=== PATIENT | male | born 1935 | race Caucasian/White ===

== ENCOUNTER 2017-09-01 19:41 | Inpatient (IN) | payer OTHER ==
--- NOTE | 2017-09-01 20:43 | EDPHY ---
H & P Time Seen by Provider: 09/01/17 20:22 HPI/ROS: CHIEF COMPLAINT: Left hand cellulitis HISTORY OF PRESENT ILLNESS: 82-year-old male presents with left hand cellulitis. He sustained a dog bite 3 days ago while playing with a family dog. Today his daughter went to his home and noticed that his hand was very red and painful. She took him to [facility] where he was given a dose of IV clindamycin. The plan was to discharge him home on Augmentin, but then he developed a fever to 101. He complains of mild pain of the left hand, which does not change with left hand/wrist movement. No nausea, vomiting or weakness. Last tetanus is unknown. REVIEW OF SYSTEMS: Eyes: No visual changes ENT: No sore throat Respiratory: No cough, no shortness of breath Cardiac: No chest pain Gastrointestinal: No nausea, no vomiting, no abdominal pain Genitourinary: No hematuria, no dysuria Neurological: No headache, no weakness Psychiatric: No depression Past Medical/Surgical History: Dementia Social History: Lives in own home Smoking Status: Never smoked Physical Exam: General Appearance: Alert, pleasant Eyes: Pupils equal and round, no conjunctival pallor or injection ENT, Mouth: Mucous membranes moist Neck: Normal inspection Respiratory: Lungs are clear to auscultation Cardiovascular: Regular rate and rhythm Gastrointestinal: Abdomen is soft and nontender Neurological: A&O, nonfocal exam Skin: Warm and dry Extremities: Left upper extremity-erythema, warmth and tenderness on the dorsum of the left hand, with 2 puncture kohler present. The erythema extends up the dorsal surface of the forearm, with a red streak on the volar aspect of the forearm. Psychiatric: Mood and affect normal Constitutional: Initial Vital Signs Temperature (C) 37.3 C 09/01/17 19:46 Heart Rate 65 09/01/17 19:46 Respiratory Rate 18 09/01/17 19:46 Blood Pressure 137/77 H 09/01/17 19:46 O2 Sat (%) 93 09/01/17 19:46 O2 Delivery Mode Room Air Allergies/Adverse Reactions: No Known Allergies Allergy (Verified 09/01/17 19:45) Home Medications: Medication Instructions Recorded Donepezil HCl [Aricept] 10 mg PO HS 09/01/17 Herbals/Supplements -Info Only 1 ea PO DAILY 09/01/17 Medical Decision Making - Diagnostics Imaging Results: X-ray independently reviewed by me reveals no retained foreign body and no evidence of osteomyelitis. Imaging: I viewed and interpreted images myself ED Course/Re-evaluation: This patient presents with cellulitis of the left hand and forearm, with lymphangitis. He is nontoxic appearing and does not meet SIRS criteria. Xray reveals no evidence of osteo or FB. He has already received clindamycin 600 mg IV. He will also need coverage for pasteurella, so Zosyn IV given after blood cultures drawn. The hospitalist service was consulted for admission. Differential Diagnosis: includes though not limited to osteomyelitis, retained FB, DVT, tenosynovitis, joint infection - Data Points Laboratory Results: Laboratory Results 09/01/17 20:45 09/01/17 20:45 Microbiology Results: MICROBIOLOGY 09/01/17 20:45 Blood Blood Culture - Preliminary Medications Given: Donepezil HCl (Aricept) 10 mg PO HS ELAINE Stop: 03/01/18 20:59 Last Admin: 09/02/17 23:17 Dose: 10 mg Heparin Sodium (Porcine) (Heparin Sc Injection) 5,000 unit SC Q8 ELAINE Stop: 03/01/18 05:59 Last Admin: 09/03/17 05:26 Dose: 5,000 unit Piperacillin/Tazobactam/Dextrose (Zosyn 3.375 Gm (Premix)) 50 mls @ 100 mls/hr IV 0500,1100,1700,2300 ELAINE PRN Reason: Protocol Stop: 10/02/17 02:59 Last Admin: 09/03/17 10:11 Dose: 50 mls Discontinued Medications Diphtheria/Tetanus/Acell Pertussis (Boostrix) 0.5 ml IM .ONCE ONE Stop: 09/03/17 10:28 Last Admin: 09/03/17 12:02 Dose: 0.5 ml Piperacillin/Tazobactam/Dextrose (Zosyn 3.375 Gm (Premix)) 50 mls @ 100 mls/hr IV EDNOW ONE PRN Reason: Protocol Stop: 09/01/17 21:22 Last Admin: 09/01/17 21:16 Dose: 50 mls Piperacillin/Tazobactam/Dextrose (Zosyn 3.375 Gm (Premix)) 50 mls @ 100 mls/hr IV Q6H ELAINE PRN Reason: Protocol Stop: 10/02/17 02:59 Last Admin: 09/02/17 08:08 Dose: 50 mls Departure - Departure Disposition: [facility] Clinical Impression: Cellulitis with lymphangitis Dog bite Qualifiers: Encounter type: initial encounter Qualified Code(s): W54.0XXA - Bitten by dog, initial encounter Condition: Fair
[2017-09-01] MEDS ORDERED: PIPERACILLIN/TAZO 3.375 GM/DEX 50 ML IV ONE (20:53)
[2017-09-01 21:00] LABS: PLATELET COUNT 133 10^3/uL (150-400)
[2017-09-01] MEDS ORDERED: HYDROmorphone HCL/NS 0.5 MG/ML SYR IVP PRN (22:20)
[2017-09-01] MEDS ORDERED: ONDANSETRON 4 MG/2 ML VIAL IVP PRN (22:20)
[2017-09-01] MEDS ORDERED: ACETAMINOPHEN 325 MG TAB PO PRN (22:20)
[2017-09-01] MEDS ORDERED: HYDROCODONE/APAP 5/325 TAB PO PRN (22:20)
--- NOTE | 2017-09-01 23:47 | PDGENHP ---
History and Physical - Chief Complaint Left hand pain and swelling, dog bite - History of Present Illness Source - Patient provides majority of the history and is a fair historian. Daughter at bedside and supplements details. Case discussed with accepting hospitalist and EMR reviewed. HPI - Pleasant 82 yo M with pmx significant for mild anemia, thrombocytopenia, mild dementia who presents to the ED from [facility] after being evaluated for worsening left hand pain, swelling and redness. Patient was spending Wednesday with his family and was playing with his daughter's dog who is vaccinated. Patient did sustain 2 punctures to the dorsum of his left hand. Daughter reports patient had a little bit of bleeding at the puncture sites but otherwise did not have any other issues. She visited the patient today and noted significant swelling, redness and patient had some pain. He was evaluated at [facility] and given a dose of IV clindamycin after he developed a fever to 101F. Patient otherwise denies any chills/sweats. no nausea/vomiting. denies any other rashes or sores. Daughter reports that redness/swelling are already improving. Patient denies any numbness/tingling to his left hand. He denies any restricted ROM. 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 Right inguinal hernia repair - Family History Negative for: diabetes type II, CAD Additional family history: patient denies family members overall healthy. parents . - Social History Smoking Status: Former smoker (quit over 40 years ago) Tobacco Use: Cigarettes Alcohol Use: Other (daily [place] cocktail.) Drug Use: None Additional social history: Lives alone. Daughter supportive and lives in town. COR - FULL. Review of Systems Review of Systems: ROS: 10pt was reviewed & negative except for what was stated in HPI & below Constitutional: Reports: fever (One episode at [facility] today.). Denies: chills EENMT: Reports: no symptoms Cardiac: Reports: no symptoms Respiratory: Reports: no symptoms Gastrointestinal: Reports: no symptoms Genitourinary: Reports: no symptoms Muscolosketal: Reports: other (Right hand pain. Without any limited range of motion.) Skin: Reports: other (Erythema and swelling in the left hand as per HPI.) Neurological: Reports: no symptoms. Denies: numbness, paresthesia, weakness Physical Exam Physical Exam: Selected Entries 09/01/17 19:46 Blood Pressure Automatic Method Heart Rate 65 Respiratory 18 Rate O2 Sat (%) 93 Temperature (C) 37.3 C Blood Pressure 137/77 H Mean Arterial 97 Pressure (MAP) O2 Delivery Room Air Mode Temperature Oral Source Temp Pulse Resp BP Pulse Ox 37.2 C 70 16 130/58 H 90 L 09/01/17 22:35 09/01/17 22:35 09/01/17 22:35 09/01/17 22:35 09/01/17 22:35 Constitutional: no apparent distress, appears nourished, chronically ill appearing, No uncomfortable Eyes: anicteric sclera, EOMI, other (Bifocals. Pupils are equal and symmetric.) , No scleral injection Ears, Nose, Mouth, Throat: moist mucous membranes, no oral mucosal ulcers, No poor dentition Cardiovascular: regular rate and rhythym, no murmur, rub, or gallop, No edema Peripheral Pulses: 2+: dorsalis-pedis (R), dorsalis-pedis (L) Respiratory: no respiratory distress, no rales or rhonchi, clear to auscultation , reduced air movement (Bibasilar.), No expiratory wheeze, No respiratory distress Gastrointestinal: normoactive bowel sounds, soft, non-tender abdomen, no palpable masses, other (Soft but full abdomen), No rebound, No distension Genitourinary: no bladder tenderness, No brewer in urethra Skin: warm, normal color, no fluctuance, erythema (Left hand), induration (Left hand swelling. No fluctuance.), No rash Musculoskeletal: full muscle strength, normal joint ROM, other (Patient moves all extremities upper lower thyroid of 5 strength), No generalized weakness Neurologic: CN II-XII Intact, No weakness, No numbness, No facial droop Psychiatric: interacting appropriately, not encephalopathic, thought process linear, poor memory (Patient unable to relay some details regarding most recent events in the last few days regarding dog bite.) Lab Data & Imaging Review 09/01/17 20:45 09/01/17 20:45 WBC 8.37 10^3/uL (3.80-9.50) 09/01/17 20:45 RBC 3.66 10^6/uL (4.40-6.38) L 09/01/17 20:45 Hgb 12.5 g/dL (13.7-17.5) L 09/01/17 20:45 Hct 36.0 % (40.0-51.0) L 09/01/17 20:45 MCV 98.4 fL (81.5-99.8) 09/01/17 20:45 MCH 34.2 pg (27.9-34.1) H 09/01/17 20:45 MCHC 34.7 g/dL (32.4-36.7) 09/01/17 20:45 RDW 12.5 % (11.5-15.2) 09/01/17 20:45 Plt Count 133 10^3/uL (150-400) L 09/01/17 20:45 MPV 10.1 fL (8.7-11.7) 09/01/17 20:45 Neut % (Auto) 67.1 % (39.3-74.2) 09/01/17 20:45 Lymph % (Auto) 20.5 % (15.0-45.0) 09/01/17 20:45 [place] % (Auto) 10.8 % (4.5-13.0) 09/01/17 20:45 Eos % (Auto) 0.7 % (0.6-7.6) 09/01/17 20:45 Baso % (Auto) 0.5 % (0.3-1.7) 09/01/17 20:45 Nucleat RBC Rel Count 0.0 % (0.0-0.2) 09/01/17 20:45 Absolute Neuts (auto) 5.62 10^3/uL (1.70-6.50) 09/01/17 20:45 Absolute Lymphs (auto) 1.72 10^3/uL (1.00-3.00) 09/01/17 20:45 Absolute Monos (auto) 0.90 10^3/uL (0.30-0.80) H 09/01/17 20:45 Absolute Eos (auto) 0.06 10^3/uL (0.03-0.40) 09/01/17 20:45 Absolute Basos (auto) 0.04 10^3/uL (0.02-0.10) 09/01/17 20:45 Absolute Nucleated RBC 0.00 10^3/uL (0-0.01) 09/01/17 20:45 Immature Gran % 0.4 % (0.0-1.1) 09/01/17 20:45 Immature Gran # 0.03 10^3/uL (0.00-0.10) 09/01/17 20:45 VBG Lactic Acid 0.7 mmol/L (0.7-2.1) 09/01/17 20:45 Sodium 136 mEq/L (135-145) 09/01/17 20:45 Potassium 4.8 mEq/L (3.5-5.2) 09/01/17 20:45 Chloride 100 mEq/L (97-110) 09/01/17 20:45 Carbon Dioxide 28 mEq/l (22-31) 09/01/17 20:45 Anion Gap 8 mEq/L (8-16) 09/01/17 20:45 BUN 19 mg/dL (7-23) 09/01/17 20:45 Creatinine 0.9 mg/dL (0.7-1.3) 09/01/17 20:45 Estimated GFR > 60 09/01/17 20:45 Glucose 92 mg/dL (70-100) 09/01/17 20:45 Calcium 8.6 mg/dL (8.5-10.4) 09/01/17 20:45 Imaging Review: 3 Views Left Hand: Clinical Indications: Pain and swelling of the left hand following a dog bite 3 days ago. Findings: A fracture or other acute osseous abnormality is not identified. The bone alignment is normal. Degenerative arthritic changes are seen. Soft tissue swelling is noted. No soft tissue air is identified and no radiopaque foreign body is seen. No osseous erosions are identified Impression: Negative for acute osseous abnormality. Assessment & Plan Assessment: Cellulitis with lymphangitis (Acute) -s/p IV clinda outpatient and now s/p Zosyn for coverage of pasteurella. patient without further fevers. Patient does not meet SIRS criteria. Blood cultures x2 were ordered from the emergency department. Lactate was within normal limits. Daughter reports improvement in patient's erythema and swelling already. Will continue with IV Zosyn pending stain and clinical improvement of patient's cellulitis. Discussed with the patient and daughter need for close monitoring and reassessment in the morning before considering discharge on oral antibiotics. Dog bite (Acute) - tetanus vaccination screening and update as appropriate. chronic medical issues dementia - continue patient's donepezil anemia - compared to labs from 2016 and stable. advised patient to follow up with pcp. thrombocytopenia - also mild and compared from 2016. f/u with pcp. FEN - patient tolerating oral hydration adequately at this time is not appear dehydrated and will continue to encourage. Electrolyte monitoring replacement if needed. Diet as tolerated. PPX-SCDs. Anticoagulation if patient should stay additional day. Cor status-full Disposition-patient admitted observation status on the medical floor. Daughter reports improvement in patient's erythema. Patient maintains range of motion and does not appear to have any involvement in tendon. Patient is desirous for her discharge as soon as possible as he and his daughter are heading out of town for family members wedding this weekend.
[2017-09-02] MEDS: PIPERACILLIN/TAZO 3.375 GM/DEX 50 ML IV SCH ×5 (03:40→23:11)
[2017-09-02 05:55] LABS: PLATELET COUNT 121 10^3/uL (150-400)
[2017-09-02] MEDS: HEPARIN 5,000 UNIT/0.5 ML INJ SC SCH ×3 (06:26→23:12)
--- NOTE | 2017-09-02 11:10 | ASMTCMCOM ---
CM Note CM Note Notes: Patient admitted with a cellulitis of the L hand following a dog bite. He is showing improvement on IV antibiotics after failing a course of orals. Patient is normally independent. He lives alone but has a supportive daughter in town. They are anxious to discharge because they have travel plans this weekend. Thankfully, patient will likely not have any discharge needs. Case Management available if that changes. Date Signed: 09/02/2017 11:09 AM Electronically Signed By:Reina Otoole RN
--- NOTE | 2017-09-02 16:05 | HOSPPROG ---
Hospitalist Progress Note Assessment/Plan: 82y male with c/o redness after a dog bite. First encounter, chart reviewed. # Cellulitis with lymphangitis (Acute) - -s/p IV clinda outpatient and now s/p Zosyn for coverage of pasteurella. -patient without further fevers. -Patient does not meet SIRS criteria. -Blood cultures x2 were ordered from the emergency department. -Lactate was within normal limits. -Daughter reports improvement in patient's erythema and swelling already. -Will continue with IV Zosyn pending clinical improvement of patient's cellulitis. -Discussed with the patient and daughter need for close monitoring and reassessment in the morning before considering discharge on oral antibiotics. # Dog bite (Acute) - -tetanus vaccination screening and update as appropriate. #dementia - -continue patient's donepezil #anemia - -compared to labs from 2016 and stable. advised patient to follow up with pcp. #thrombocytopenia - -also mild and compared from 2016. f/u with pcp. #FEN - -patient tolerating oral hydration adequately at this time is not appear dehydrated and will continue to encourage. -Diet as tolerated. PPX-SCDs. Anticoagulation if patient should stay additional day. Cor status-full Disposition-patient will be changed to inpatient status as he requires further IV abx therapy. Patient maintains range of motion and does not appear to have any involvement in tendon. Patient is desirous for her discharge as soon as possible as he and his daughter are heading out of town for family members wedding this weekend. Plan to DC in am after 5:00am dose of abx. Long discussion with daughter and patient. Subjective: Feeling better. No pain. No issues. Objective: Vital Signs Temp Pulse Resp BP Pulse Ox 37.1 C 80 18 110/65 90 L 09/02/17 15:35 09/02/17 15:35 09/02/17 15:35 09/02/17 15:35 09/02/17 15:35 Laboratory Results 09/02/17 05:08 09/02/17 05:08 09/01/17 09/02/17 09/03/17 05:59 05:59 05:59 Intake Total 285 Balance 285 - Physical Exam Constitutional: no apparent distress, appears nourished, not in pain Eyes: PERRL, anicteric sclera, EOMI Ears, Nose, Mouth, Throat: moist mucous membranes, hearing normal, ears appear normal Cardiovascular: regular rate and rhythym, No JVD, No tachycardia Respiratory: no respiratory distress, no rales or rhonchi, clear to auscultation Gastrointestinal: normoactive bowel sounds, soft, non-tender abdomen, No ascites Skin: warm, no induration, erythema Musculoskeletal: full muscle strength, no muscle tenderness, normal joint ROM Neurologic: AAOx3 Psychiatric: interacting appropriately, not anxious, not encephalopathic, poor memory ICD10 Worksheet Patient Problems: Problems Problem Status Onset Osteoarthritis of knee Active Cellulitis of knee Active Cellulitis with lymphangitis Acute Dog bite Acute
--- NOTE | 2017-09-02 16:47 | PDMN ---
Medical Necessity Medical necessity: change to IP; los>2mn for cellulitis L hand w/lymphangitis r/ t dog bite; requires continued IV abx; comorbid dementia, chronic anemia and thrombocytopenia; per order and progress note 09/02/17
--- NOTE | 2017-09-02 22:50 | HOSPPROG ---
Hospitalist Progress Note Assessment/Plan: Hospitalist night float note Discussed patient with swing provider Dr. Lovelace, who evaluated the patient independently who is concerned that patient still had a significant amount of erythema and swelling in the left hand. I Went to bedside to follow up on progress of patient's left hand cellulitis. There was some hope that if patient's cellulitis continued to improve that patient might be able to leave for early discharge with oral antibiotic therapy for grandson's wedding [id number]. Erythema on his forearm has significantly improved and the patient continues to have a notable amount of erythema and swelling in his the dorsum of his hand and fingers. 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 He has remained afebrile. Discussed with patient and his daughter at bedside that I recommend continuing IV antibiotics (Zosyn) at this time until the erythema is further improved particularly over dorsum of his hand and fingers. Continue with elevation of the left upper extremity. Patient was already transition to inpatient status earlier in the day. Blood cultures are still pending. Patient has remained afebrile. RN will be updated of plan. Objective: Vital Signs Temp Pulse Resp BP Pulse Ox 37.1 C 88 16 109/62 93 09/02/17 19:38 09/02/17 19:38 09/02/17 19:38 09/02/17 19:38 09/02/17 19:38 Laboratory Results 09/02/17 05:08 09/02/17 05:08 09/01/17 09/02/17 09/03/17 05:59 05:59 05:59 Intake Total 285 500 Balance 285 500 ICD10 Worksheet Patient Problems: Problems Problem Status Onset Cellulitis with lymphangitis Acute Dog bite Acute Cellulitis of knee Active Osteoarthritis of knee Active
[2017-09-02] MEDS: DONEPEZIL HCL 5 MG TAB PO SCH (23:17)
[2017-09-03] MEDS: PIPERACILLIN/TAZO 3.375 GM/DEX 50 ML IV SCH ×4 (05:26→22:25)
[2017-09-03] MEDS: HEPARIN 5,000 UNIT/0.5 ML INJ SC SCH ×3 (05:26→21:17)
[2017-09-03] MEDS ORDERED: Herbals/Supplements -Info Only PO SCH (09:00)
[2017-09-03] MEDS ORDERED: TDAP ADULT 0.5 ML INJ (BOOSTRIX) IM ONE (10:27)
--- NOTE | 2017-09-03 10:37 | SOAPPROG ---
SOAP Progress Note Assessment/Plan: Assessment:This is an 82 yo male who was brought to the ED from Urgent Care following a dog bite to his left hand. He was given Rocephin at Urgent Care but became febrile, so they transferred him to [facility]. He was started on Zosyn for left hand cellulitis. Blood cultures have been negative thus far. Vitals stable. Clinically improving. Plan: -Cellulitis: Currently on zosyn, appears to be responding nicely. Has remained afebrile, blood cultures negative. Last tetanus was in 2010. Given that it has been more than 5 years will administer tdap today. Will keep him inpatient and on IV abx at least through tomorrow and see how his hand is improving. Will plan to d/c on Augmentin when it is time. -Dispo: Anticipate d/c home in 1-2 days, depending on safety and ability to manage new abx at home independently. Will have case management see him to help coordinate. May need home health to help until family returns home. 09/03/17 10:39 Subjective: Roque is sitting up in his chair this morning eating breakfast. Feels well and says his hand is improving- much less red than it was initially. He says he doesn't have a huge appetite, but attributes this to his inactivity while in the hospital. Objective: Vital Signs Temp Pulse Resp BP Pulse Ox 36.7 C 81 16 111/62 93 09/03/17 08:00 09/03/17 08:00 09/03/17 08:00 09/03/17 08:00 09/03/17 08:00 Laboratory Results 09/02/17 05:08 09/02/17 05:08 09/02/17 09/03/17 09/04/17 05:59 05:59 05:59 Intake Total 285 610 Balance 285 610 Gen- AAO, answers questions appropriately Head- normocephalic, atraumatic ENT- PEERL, EOMI Resp- LCTAB, no wheezing, rhonchi, rales CV- S1S2, RRR, no murmurs, rubs, gallops Abd- SNT, nondistended Extremities- no peripheral edema Skin- Warm and dry Neuro- grossly intact, underlying dementia but appropriate during our conversation ICD10 Worksheet Patient Problems: Problems Problem Status Onset Cellulitis with lymphangitis Acute Dog bite Acute Cellulitis of knee Active Osteoarthritis of knee Active
--- NOTE | 2017-09-03 16:07 | ASMTCMCOM ---
CM Note CM Note Notes: Spoke w/pt and dtr Eryn [phone] re; dc poc. Initially pt was going to fly out with dtr to grandsons wedding today but d/t to infection dtr has decided to stay back with father. Pt has mild dementia and she does not feel comfortable leaving him alone with new medication. The plan moving forward, pt's dtr is working on getting pt into [facility], she is in contact with Car[facility] [phone], who needs form filled out by Lucia Saldaña [phone] PCP who rounded on pt this am. CM spoke w/Carlie at [facility], they would like to transfer pt on Wednesday as long as PCP can fill out form that they require. CM to fax [facility]lie at [facility] at [phone] dc paperwork. DC Plan: [facility] Date Signed: 09/03/2017 04:06 PM Electronically Signed By:Farhia Judd RN
[2017-09-03] MEDS: DONEPEZIL HCL 5 MG TAB PO SCH (21:17)
[2017-09-04] MEDS: PIPERACILLIN/TAZO 3.375 GM/DEX 50 ML IV SCH ×2 (05:31→10:22)
[2017-09-04] MEDS: HEPARIN 5,000 UNIT/0.5 ML INJ SC SCH (05:31)
[2017-09-04 07:42] VITALS: BP 109/52
--- NOTE | 2017-09-04 11:03 | SOAPPROG ---
SOAP Progress Note Assessment/Plan: Assessment:This is an 82 yo male who was brought to the ED from Urgent Care following a dog bite to his left hand. He was given Rocephin at Urgent Care but became febrile, so they transferred him to [facility]. He was started on Zosyn for left hand cellulitis. Blood cultures have been negative thus far. Vitals stable. Clinically improving. Plan: -Cellulitis: Hand is looking much improved today. Vitals stable, afebrile, white count WNL. Plan to d/c to [facility] on PO augmentin BID x5 days and f/ u in office middle of next week. 09/03/17 10:39 09/04/17 11:00 Subjective: Resting in chair. Reports that hand is feeling much better today. He has had a good appetite, feeling well, eager to get to [facility] today. Objective: Vital Signs Temp Pulse Resp BP Pulse Ox 36.8 C 74 16 109/52 L 93 09/04/17 07:40 09/04/17 07:40 09/04/17 07:40 09/04/17 07:40 09/04/17 07:40 Laboratory Results 09/04/17 04:58 09/02/17 05:08 09/03/17 09/04/17 09/05/17 05:59 05:59 05:59 Intake Total 610 650 Balance 610 650 Gen- AAOx3, vitals stable Head- atraumatic, normocepahlic ENT- PEERL, EOMI Resp- LCTAB, no wheezing, rhonchi, rales CV- S1S2, RRR, no murmurs, rubs, gallops Extremities- L hand erythema markedly improved, w/o warmth to palpation ICD10 Worksheet Patient Problems: Problems Problem Status Onset Cellulitis with lymphangitis Acute Dog bite Acute Cellulitis of knee Active Osteoarthritis of knee Active
--- NOTE | 2017-09-04 11:04 | PDIAF ---
- Diagnosis Code Status: Full Code - Medication Management Discharge Medications: Medications to Continue on Transfer Donepezil HCl [Aricept] 10 mg PO HS 09/01/17 [Last Taken Unknown] Herbals/Supplements -Info Only 1 ea PO DAILY 09/01/17 [Last Taken Unknown] Discharge Medications: Refer to the Discharge Home Medication list for PRN reason. - Orders Diet Recommendation: no restrictions on diet Diet Texture: Regular Texture Diet - Follow Up Care Current Providers and Referrals: Dane Garcia MD [Primary Care Provider] - As per Instructions
--- NOTE | 2017-09-04 12:51 | GDS ---
[f rep st] DISCHARGE SUMMARY This is an 82-year-old male who was admitted through the emergency room after being seen at urgent md re for a dog bite to the left hand. He was initially seen at urgent care where he received a dose of IM Rocephin but was febrile, so they sent him over to [facility] ED. He presented with significant left salguero nd pain, swelling, and redness. Was admitted for cellulitis. Blood cultures were negative, and vahe ls remained stable. He was switched over to IV clindamycin and then ultimately transitioned to IV Zo syn. The infection has responded nicely to the IV Zosyn, and he will be discharged on p.o. Augmentin today. He had 2 puncture sites to the dorsum of the left hand, which had a little bit of bleeding a t the site but did not appear to have any signs of infection or concern at the site, just the signifi cant swelling, redness, and pain to the surrounding tissue, consistent with cellulitis. Initially di scharged to [facility] as a respite bed with the ultimate plans of being tr ansitioned to long-term care at the facility. He does have underlying dementia, so his ability to be gin a regimen with p.o. antibiotics outpatient will be taken care of at the assisted living facility. His daughter has been involved with care. He will plan to follow up in the clinic next week for re -evaluation of the left hand cellulitis, as well as medication management. DISCHARGE MEDICATIONS: Include Augmentin 875 one tablet p.o. b.i.d. x5 days, Aricept 10 mg p.o. q.h. s., and the patient is on a number of supplemental vitamins as prescribed by his outpatient PCP. /[id number]/MODL
[2017-09-04] MEDS ORDERED: Herbals/Supplements -Info Only PO SCH (16:00)
[2017-09-04] MEDS ORDERED: AMOXICILLIN/CLAVULANATE POT 875/125 MG TAB PO SCH (21:00)
== END 2017-09-04 14:08 | DRG 603 ==
LOC: OBSVTOIN 20:54 → INTOOBSV 20:54 → UNDOADMOB 20:54 → F3E 22:09 → OBSVTOIN 09-02 16:26 → F3E 09-02 16:26 → UNDODISIN 09-04 14:08
PROVIDERS: ADMIT Internal Medicine; ATTEND Internal Medicine
DX: L03.114 Cellulitis of left upper limb (principal); S61.452A Open bite of left hand, initial encounter; W54.0XXA Bitten by dog, initial encounter; F03.90 Unspecified dementia, unspecified severity, without behavioral disturbance, psychotic disturbance, mood disturbance, and anxiety; D64.9 Anemia, unspecified; D69.6 Thrombocytopenia, unspecified; Y92.019 Unspecified place in single-family (private) house as the place of occurrence of the external cause
CPT/HCPCS: G0378; J1644; J2543